=== PATIENT | male | born 1965 | race African-American/Black ===

== ENCOUNTER 2017-08-15 11:16 | Emergency (ER) | payer MEDICAID ==
[~2017-08-15] VITALS: Ht 170.2 cm; Wt 86.0 kg
[2017-08-15] MEDS ORDERED: LISI2.5T47 PO (11:24)
[2017-08-15] MEDS ORDERED: SODIUM CHLORIDE 0.9% 1,000 ML IV ONE (14:15)
[2017-08-15 15:11] LABS: BASOPHILS % 0.5 % (0.0-2.0); EOSINOPHILS % 2.7 % (0.0-5.0); HEMATOCRIT. 44.1 % (42.0-52.0); HEMOGLOBIN. 14.8 g/dL (14.0-18.0); LYMPHOCYTES % 24.7 % (20.0-50.0); MEAN CORPUSCULAR HEMOGLOBIN 30.1 pg (28.0-32.0); MEAN CORPUSCULAR VOLUME 89.4 fL (80.0-94.0); MEAN PLATELET VOLUME 10.4 fl (7.4-10.4); MONOCYTES % 8.8 % (2.0-8.0); NEUTROPHILS % 63.3 % (40.0-76.0); PLATELET 165 x1000/uL (130-400); RED BLOOD CELL COUNT 4.93 mill/uL (4.7-6.1); RED CELL DISTRIBUTION WIDTH 12.9 % (11.6-14.6)
[2017-08-15 15:15] LABS: PROTHROMBIN TIME 10.8 sec (9.4-11.6)
[2017-08-15 15:18] LABS: CARBON DIOXIDE 29 mEq/L (21-32); CHLORIDE 106 mEq/L (98-107)
[2017-08-15 15:36] LABS: CLARITY URINE CLEAR (CLEAR); COLOR URINE YELLOW (YELLOW); GLUCOSE URINE NEGATIVE (NEGATIVE); KETONES URINE TRACE (NEGATIVE); LEUKOCYTE ESTERASE URINE NEGATIVE (NEGATIVE); NITRITE URINE NEGATIVE (NEGATIVE); OCCULT BLOOD URINE NEGATIVE (NEGATIVE); PH URINE 5.5 (4.5-8.0); PROTEIN URINE NEGATIVE (NEGATIVE); SPECIFIC GRAVITY URINE 1.025 (1.005-1.030); UROBILINOGEN URINE 0.2 E.U./dL (0.2-1.0)
[2017-08-15 15:40] LABS: HEPATITIS B SURFACE ANTIGEN NEGATIVE
[2017-08-15 15:59] LABS: *AMPHETAMINES SCREEN URINE NEGATIVE (NEGATIVE); *BARBITURATES SCREEN URINE NEGATIVE (NEGATIVE); *BENZODIAZEPINES SCREEN URINE NEGATIVE (NEGATIVE); *COCAINE SCREEN URINE NEGATIVE (NEGATIVE); CANNABINOID URINE SCREEN NEGATIVE (NEGATIVE); METHADONE URINE SCREEN NEGATIVE (NEGATIVE); OPIATES URINE SCREEN NEGATIVE (NEGATIVE); PHENCYCLIDINE URINE SCREEN NEGATIVE (NEGATIVE)
[2017-08-15 16:09] LABS: HEPATITIS B CORE AB IGM NEGATIVE
[2017-08-15 16:10] LABS: HEPATITIS A AB IGM NEGATIVE (NEGATIVE)
[2017-08-15] MEDS ORDERED: KETOROLAC 60MG/2ML VIAL IM ONE (17:30)
[2017-08-15 18:15] VITALS: BP 126/82
== END 2017-08-15 18:16 | disposition home or self-care (01) ==
LOC: ER 11:16
DX: K43.9 Ventral hernia without obstruction or gangrene (principal); M79.2 Neuralgia and neuritis, unspecified; E86.0 Dehydration; R11.2 Nausea with vomiting, unspecified; I10 Essential (primary) hypertension; R05 Cough
CPT/HCPCS: 36415; 71010; 74176; 80053; 80305; 81003; 83036; 83690; 85025; 85610; 85651; 87040; 87086; 93005; 96360; 96361; 96372; 99285; J1885; J7030; Z7610; 86705; 86709; 86803; 87340

== ENCOUNTER 2018-02-11 15:21 | Emergency (ER) | payer MEDICAID ==
[~2018-02-11] VITALS: Ht 170.2 cm; Wt 80.0 kg
[~2018-02-11 15:21] MED LIST: ASPI-1158 PO; LISI10TA5 PO; LISI2.5T47 PO; Norco PO
[2018-02-11] MEDS ORDERED: TETRACAINE 0.5% OPHTH DROPS 4ML RIGHTEYE ONE (15:45)
[2018-02-11] MEDS ORDERED: FLUORESCEIN SODIUM 1MG/STRIP RIGHTEYE ONE (15:45)
[2018-02-11 19:01] VITALS: BP 145/75
== END 2018-02-11 19:28 | disposition home or self-care (01) ==
LOC: ER 15:48
DX: S05.01XA Injury of conjunctiva and corneal abrasion without foreign body, right eye, initial encounter (principal); I10 Essential (primary) hypertension; Z79.82 Long term (current) use of aspirin; X58.XXXA Exposure to other specified factors, initial encounter; Y93.89 Activity, other specified; Y92.89 Other specified places as the place of occurrence of the external cause; Y99.8 Other external cause status
CPT/HCPCS: 99283; Z7610

== ENCOUNTER 2021-09-13 10:44 | Emergency (ER) | payer MEDICAID ==
[~2021-09-13] VITALS: Ht 177.8 cm; Wt 85.0 kg
[~2021-09-13 10:44] MED LIST changes: -ASPI-1158 PO; +ASPI-1406 PO; -LISI10TA5 PO; -Norco PO
[2021-09-13] MEDS ORDERED: ACETAMINOPHEN 325MG TABLET PO ONE (12:15)
[2021-09-13 12:25] LABS: BASOPHILS % 0.6 % (0.0-2.0); EOSINOPHILS % 4.1 % (0.0-5.0); HEMATOCRIT. 40.8 % (42.0-52.0); HEMOGLOBIN. 13.5 g/dL (14.0-18.0); LYMPHOCYTES % 24.4 % (20.0-50.0); MEAN CORPUSCULAR HEMOGLOBIN 29.4 pg (28.0-32.0); MEAN CORPUSCULAR VOLUME 89.2 fL (80.0-94.0); NEUTROPHILS % 58.9 % (40.0-76.0); PLATELET 177 x1000/uL (130-400); RED BLOOD CELL COUNT 4.58 mill/uL (4.7-6.1); RED CELL DISTRIBUTION WIDTH 12.8 % (11.6-14.6)
[2021-09-13 12:32] LABS: CHLORIDE 106 mEq/L (98-107)
[2021-09-13] MEDS ORDERED: IOHEXOL-350 100 ML BOTTLE ONE (15:21)
[2021-09-13] MEDS ORDERED: CLONIDINE 0.1MG TABLET PO PRN (17:45)
[2021-09-13] MEDS ORDERED: IPRATROPIUM/ALBUTEROL 0.5-3(2.5)MG/3ML NEB HHN PRN (17:45)
[2021-09-13] MEDS ORDERED: ACETAMINOPHEN 325MG TABLET PO PRN (17:45)
[2021-09-13] MEDS ORDERED: DIPHENHYDRAMINE 50MG/ML VIAL IV PRN (17:45)
[2021-09-13] MEDS ORDERED: ONDANSETRON HCL 4MG/2ML INJ IV PRN (17:45)
[2021-09-13] MEDS ORDERED: MORPHINE SULFATE 2 MG/ML CPJ (NOT FOR IM USE) IV PRN (17:45)
[2021-09-13] MEDS ORDERED: ENOXAPARIN 40MG/0.4ML SYR SUBCUT SCH (18:00)
[2021-09-13 21:47] VITALS: BP 112/58
== END 2021-09-13 21:47 | disposition left against medical advice (07) ==
LOC: ER 10:44 → CANRESERV 19:08 → ENRESERV 19:08 → ER 21:47 → CANBEDREQ 21:58
DX: R07.89 Other chest pain (principal); D64.9 Anemia, unspecified; I10 Essential (primary) hypertension; Z86.711 Personal history of pulmonary embolism; Z79.82 Long term (current) use of aspirin; Z79.01 Long term (current) use of anticoagulants
CPT/HCPCS: 36415; 71045; 71275; 80053; 83880; 84484; 85025; 85379; 93005; 93970; 99285; Q9967